=== PATIENT | male | born 1950 | race Caucasian/White ===

== ENCOUNTER → 2020-10-08 10:43 | Outpatient (CLI) | payer OTHER, SELFPAY ==
[2020-10-08] MEDS: COVID-19 VACC #1, MRNA(MOD) 100 MCG/0.5 ML VIAL IM (10:50)
== END ==
PROVIDERS: Visit Provider Internal Medicine
DX: Z23 Encounter for immunization (principal)
CPT/HCPCS: 0011A; 91301

== ENCOUNTER → 2020-11-05 10:44 | Outpatient (CLI) | payer OTHER, SELFPAY ==
[2020-11-05] MEDS: COVID-19 VACC #2, MRNA(MOD) 100 MCG/0.5 ML VIAL IM (10:48)
== END ==
PROVIDERS: Visit Provider Internal Medicine
DX: Z23 Encounter for immunization (principal)
CPT/HCPCS: 0012A; 91301

== ENCOUNTER → 2024-01-12 07:38 | Outpatient (CLI) | payer MEDICARE, OTHER, SELFPAY ==
[2024-01-12 08:20] LABS: Hematocrit 40.7 % (41-53); Hemoglobin 13.4 g/dL (13.5-17.5); Mean Corpuscular HGB Conc 32.9 % (30-36); Mean Corpuscular Hemoglobin 29.3 PG (26-34); Mean Corpuscular Volume 88.8 fL (80-100); Platelet Count 215 X10^3/uL (150-400); Red Blood Cell Count 4.58 X10^6/uL (4.5-5.9); White Blood Cell Count 6.4 X10^3/uL (4.5-11.0)
[2024-01-12 08:30] LABS: Hemoglobin A1C% w Est Avg Glu 5.8 % (4.0-6.0)
[2024-01-12 08:52] LABS: Alanine Aminotransferase 20 IU/L (<50); Albumin 4.5 g/dL (3.5-5.0); Albumin Globulin Ratio 1.8 (1.0-2.8); Alkaline Phosphatase 55 U/L (38-126); Aspartate Aminotransferase 27 IU/L (17-59); Bilirubin Total 0.6 mg/dL (0.2-1.3); Blood Urea Nitrogen 19 mg/dL (9-20); Calcium 9.5 mg/dL (8.4-10.2); Carbon Dioxide 33 mmol/L (22-32); Chloride 102 mmol/L (98-107); Cholesterol 171 mg/dL (140-199); Estimated Glomerular Filt Rate > 60 mL/min (>60); Globulin 2.5 g/dL (1.7-4.1); Glucose 106 mg/dL (80-110); HDL Cholesterol 52 mg/dL (40-60); HEMOLYSIS < 15 (0-50); LDL Cholesterol Calculated 90 mg/dL (<100); Potassium 3.9 mmol/L (3.4-5.1); Sodium 139 mmol/L (137-145); Triglycerides 145 mg/dL (35-150)
[2024-01-12 09:15] LABS: TSH w/ Reflex to FT4 1.59 uIU/mL (0.47-4.68)
== END ==
PROVIDERS: PCP Registered Nurse Diabetes Educator; Referring Provider Registered Nurse Diabetes Educator; Visit Provider Registered Nurse Diabetes Educator
DX: E78.5 Hyperlipidemia, unspecified (principal); R73.03 Prediabetes; I10 Essential (primary) hypertension
CPT/HCPCS: 36415; 80053; 80061; 83036; 84443; 85027

== ENCOUNTER → 2024-01-16 11:18 | Outpatient (CLI) | payer MEDICARE, OTHER, SELFPAY ==
--- NOTE | 2024-01-16 11:21 | DI.RAD.S_ITS ---
PROCEDURE: XR FINGER LT MIN 2V INDICATIONS: eval 4th finger middle phalanx nodule TECHNIQUE: AP hand, 2 views of the 4th finger(s) acquired. COMPARISON: None. FINDINGS: Bones: No fractures or dislocations. No suspicious bony lesions. Soft tissues: No suspicious soft tissue calcifications. No definitive soft tissue nodule. The IMPRESSION: No definitive soft tissue nodule. No underlying osseous abnormality. Dictated by: Elenita Chow M.D. on 01/16/2024 at 12:39 Approved by: Elenita Chow M.D. on 01/16/2024 at 12:40
== END ==
LOC: RAD 11:20
PROVIDERS: PCP Registered Nurse Diabetes Educator; Referring Provider Registered Nurse Diabetes Educator; Visit Provider Registered Nurse Diabetes Educator
DX: R22.30 Localized swelling, mass and lump, unspecified upper limb (principal)
CPT/HCPCS: 73140

== ENCOUNTER → 2024-04-22 10:10 | Outpatient (CLI) | payer OTHER, SELFPAY ==
[2024-04-22 11:02] LABS: Hematocrit 42.4 % (41-53); Hemoglobin 14.1 g/dL (13.5-17.5); Mean Corpuscular HGB Conc 33.2 % (30-36); Mean Corpuscular Hemoglobin 29.4 PG (26-34); Mean Corpuscular Volume 88.4 fL (80-100); Platelet Count 202 X10^3/uL (150-400); Red Cell Distribution Width 14.5 % (11.6-14.8); White Blood Cell Count 6.9 X10^3/uL (4.5-11.0)
[2024-04-22 11:28] LABS: HEMOLYSIS < 15 (0-50); Iron 134 ug/dL (49-181)
[2024-04-22 11:30] LABS: Neutrophils Absolute Manual 4209 /uL (3000-5900); Total Cells Counted 100
[2024-04-22 11:31] LABS: RBC Morphology Normal Morphology
[2024-04-22 11:38] LABS: Percent Iron Saturation 38 % (20-50); Total Iron Binding Capacity 350 ug/dL (261-462); Transferrin 299 mg/dL (206-381)
[2024-04-22 11:59] LABS: Ferritin 77 ng/mL (18-464)
[2024-04-22 12:34] LABS: Folate 18.7 ng/mL (2.76-20.0); Vitamin B12 339 pg/mL (239-931)
== END ==
PROVIDERS: PCP Registered Nurse Diabetes Educator; Referring Provider Registered Nurse Diabetes Educator; Visit Provider Registered Nurse Diabetes Educator
DX: D64.9 Anemia, unspecified (principal)
CPT/HCPCS: 36415; 82607; 82728; 82746; 83540; 83550; 85025

== ENCOUNTER 2024-09-20 13:09 | Day surgery (SDC) | payer OTHER, SELFPAY ==
--- NOTE | 2024-09-20 | PATH_ITS ---
[facility] Accession Number: [id number] No. of containers..04 Tissue . 01 Material submitted: . PART A: stomach - ANTRAL BIOPSY PART B: stomach - ANTRAL POLYP PART C: colon - DESCENDING COLON POLYP PART D: rectum - RECTAL POLYP X2 . 01 Diagnosis: Part A: ANTRAL BIOPSY: Gastric antral mucosa with no diagnostic alterations. No Helicobacter organisms identified on H/E stain. No intestinal metaplasia, dysplasia, or malignancy identified. . Part B: ANTRAL POLYP: Gastric hyperplastic polyp. No Helicobacter organisms identified. No intestinal metaplasia, dysplasia, or malignancy identified. . Part C: DESCENDING COLON POLYP: Tubular adenoma. . Part D: RECTAL POLYP X2: Hyperplastic polyps. [facility] 09/24/2024 1145 Local . 01 Electronically signed: . Guanakito Mccann MD, Pathologist NPI- [id number] . 01 Gross description: . A. Received in formalin with two patient identifiers and antral biopsy, are two fisher soft tissue fragments both measuring 0.4 cm in greatest dimension. Submitted in cassette A1. . B. Received in formalin with two patient identifiers and antral polyp, is a single fisher-brown soft tissue fragment measuring 0.9 x 0.7 x 0.6 cm. Inked blue, serially sectioned, and submitted entirely in cassette B1. . C. Received in formalin with two patient identifiers and descending colon polyp, are three fisher to brown soft tissue fragments 0.2 to 1.3 cm in greatest dimension. Submitted in cassette C1. . D. Received in formalin with two patient identifiers and rectal polyp x2, are two fisher and brown soft tissue fragments measuring 0.7 x 0.9 cm in greatest dimension. Submitted in cassette D1. ([id number]) /[facility] 09/24/2024 1145 Local . 01 Pathologist provided ICD-10: D12.4, K31.7, K62.1 . 01 CPT . 576747, 459548, 310221, [id number] Specimen Comment: A courtesy copy of this report has been sent to [facility]ology Performed at: [address] [facility] [address] [id number] MD Guanakito Mccann MD Phone: [phone]
[2024-09-20 13:44] VITALS: BP 153/82; PULSE 50; RESP 16; TEMP 36.2; O2SAT 98
[2024-09-20] MEDS: SODIUM CHLORIDE 0.9% 1,000 ML 84 ML IV (14:04)
--- NOTE | 2024-09-20 14:04 | P.OP.PRE_ITS ---
Pre-operative Note COVID-19 COVID-19 status: Not tested Interval Note History & Physical reviewed/Exam performed by Physician: Yes Changes to H&P: No H&P completed within 30 days and has changed as indicated here:: Patient presen ts for EGD and colonoscopy Risks, benefits, alternatives to colonoscopy explained, including but not limited to bowel perforation or other serious complication requiring surgery at less than 1 in 5000 colonoscopies, abdominal pain, cramping or bleeding and less than 1% of colonoscopies, and the chances that we find a diagnosis that would require further intervention of about 2%. Patient agrees to proceed. ASA Class (for procedural sedation): III
--- NOTE | 2024-09-20 14:23 | PM.OP.EC ---
Operative Date/Time/Diagnoses Date of procedure: 09/20/24 Time of procedure: 14:38 Pre-op diagnosis: Reflux, colon screening Post-op diagnosis: other (1. Gastritis 2. Gastric polyp 3. Descending colon polyp, rectal polyp x2) Procedure Notes SCOAP/Timeout: Performed Procedure in detail: Time-out was performed. Mac was induced. Patient was placed in left lateral decubitus position. Bite block was inserted. Gastroscope was inserted through the mouth into the 2nd portion of the duodenal. Duodenal bulb appeared normal. There was erythematous linear erosions in the antrum consistent with antral gastritis. Two random biopsies were obtained for H pylori. There was a 1.5 cm polyp in the antrum. This was removed with hot snare polypectomy. Retroflexed view showed small hiatal hernia. Z-line was noted to be at 40 cm with a normal GE junction. The esophagus was inspected and no gross abnormalities. Attention was then turned to the colonoscopy. The perineum was inspected without any gross abnormality. Lubricated pediatric colonoscope was inserted and advanced to the cecum. The terminal ileum was intubated. The colonoscope was withdrawn slowly inspecting the circumference of the colon. Three polyps all less than 10 mm in size were noted. First the descending colon polyp was removed with cold snare polypectomy and retrieved. There were 2 separate rectal polyps also removed with cold snare polypectomy and retrieved. Very small polyps may have been missed, prep quality was adequate. Retroflexed view of the rectum showed small, non prolapsed nonbleeding internal hemorrhoids. The scope was withdrawn the patient was taken to PACU in good condition. Scope withdrawal time: 12 Sedation minutes: 20 Findings: gastritis and polyp Specimen(s): other (1. Antral biopsy2. Antral polyp3. Descending colon polyp4. Rectal polyps x2) Complications: none Impression: Gastritis, polyps Post-procedure Recommendations: Colonscopy in 3 years, Reflux diet and Stop medication(s) (Stop smoking marijuana, continue omeprazole b.i.d.) Plan for aftercare: Home Follow up: as needed Disposition: PACU
[2024-09-20 14:45] VITALS: BP 140/84; PULSE 58; RESP 13; TEMP 36.3; O2SAT 96
[2024-09-20 14:51] VITALS: BP 131/86; PULSE 55; RESP 12; O2SAT 96
[2024-09-20 14:55] VITALS: BP 145/95; PULSE 57; RESP 16; O2SAT 97
[2024-09-20 15:01] VITALS: BP 134/77; PULSE 57; RESP 14; TEMP 36.3; O2SAT 95
== END 2024-09-20 15:08 | disposition home or self-care (01) ==
PROVIDERS: PCP Registered Nurse Diabetes Educator; Referring Provider Surgery; Visit Provider Surgery
PROC: 0DJ08ZZ Inspection of Upper Intestinal Tract, Via Natural or Artificial Opening Endoscopic (ICD-10-PCS; CPT 43251; principal; 2024-09-20 14:15)
PROC: 0DJD8ZZ Inspection of Lower Intestinal Tract, Via Natural or Artificial Opening Endoscopic (ICD-10-PCS; CPT 45378; 2024-09-20 14:15)
DX: Z12.11 Encounter for screening for malignant neoplasm of colon (principal); D12.4 Benign neoplasm of descending colon; K31.7 Polyp of stomach and duodenum; K62.1 Rectal polyp; K21.9 Gastro-esophageal reflux disease without esophagitis; K29.70 Gastritis, unspecified, without bleeding; K44.9 Diaphragmatic hernia without obstruction or gangrene; K64.8 Other hemorrhoids; I10 Essential (primary) hypertension; E66.9 Obesity, unspecified; F12.10 Cannabis abuse, uncomplicated; Z68.35 Body mass index [BMI] 35.0-35.9, adult; Z87.891 Personal history of nicotine dependence
CPT/HCPCS: 43251; 45385; J2704